=== PATIENT | male | born 1980 | race Caucasian/White ===

== ENCOUNTER 2018-09-29 08:42 | Emergency (ER) | payer OTHER ==
[~2018-09-29] VITALS: Ht 190.5 cm; Wt 94.8 kg
[~2018-09-29 08:42] MED LIST: CREATINE100 GM MC; FISH OIL 1,0001 EAC2 NG; MULTIVITAMINS1 EAC7 PO
[2018-09-29] MEDS ORDERED: KETOROLAC TROME10 MG PO (10:51)
== END 2018-09-29 11:04 | disposition home or self-care (01) ==
LOC: ED 08:42
DX: M25.562 Pain in left knee (principal); I10 Essential (primary) hypertension; Z79.899 Other long term (current) drug therapy
CPT/HCPCS: 73560; 93971; 99284-25

== ENCOUNTER 2021-11-23 10:56 | Emergency (ER) | payer OTHER ==
[~2021-11-23] VITALS: Ht 190.5 cm; Wt 110.2 kg
[~2021-11-23 10:56] MED LIST changes: +FISH OIL 1,0001 EAC3 PO; +KETOROLAC TROME10 MG PO
[2021-11-23] MEDS ORDERED: LOSARTAN POTASS50 MG PO (11:30)
[2021-11-23] MEDS ORDERED: VALIUM10 MG PO (16:37)
== END 2021-11-23 17:36 | disposition home or self-care (01) ==
LOC: ED 10:56
DX: S39.012A Strain of muscle, fascia and tendon of lower back, initial encounter (principal); I10 Essential (primary) hypertension; Z79.899 Other long term (current) drug therapy; X50.0XXA Overexertion from strenuous movement or load, initial encounter
CPT/HCPCS: 72100; 96372; 99283-25; J1170; J1885